=== PATIENT | female | born 1945 | race Two or more races ===

== ENCOUNTER 2016-10-11 11:15 | Emergency (ER) | payer MEDICARE, OTHER ==
[2016-10-11 11:58] VITALS: BP 127/67
--- NOTE | 2016-10-11 12:49 | UC ---
Upper Extremity HPI - HPI Summary HPI Summary: 71 y/o female c/o right sided deltoid pain, worsened with movement (external rotation, and raising the arm) and right medial wrist pain x 1 month. Has full ROM in the shoulder, denies any weakness, numbness, tingling, burning, changes in temperature, bruising, swelling, or known mechanism of injury. Patient states she woke up one day and the wrist and upper right arm felt painful with movement, occasionally wakes the patient up at night, patient is able to reposition herself to resume rest. Reports worsening pain or weakness with opening jars. Denies chest pain, tightness, SOB, intrascapular pain, or any cardiac symptoms. Pain improved by using a heating pad. - History of Current Complaint Chief Complaint: UCUpperExtremity Stated Complaint: RIGHT ARM,LEFT NECK PAIN Time Seen by Provider: 10/11/16 12:09 Hx Obtained From: Patient ?: No Onset/Duration: Gradual Onset Severity Initially: Mild Severity Currently: Mild Pain Intensity: 5 Pain Scale Used: 0-10 Numeric Character: Dull Aggravating Factor(s): Movement, Lifting, Internal/External Rotation Alleviating Factor(s): Heat Associated Signs And Symptoms: Positive: Negative Related History: Dominant Hand Right - Risk Factors Non-Orthopedic Risk Factor: Negative DVT Risk Factors: Negative Septic Arthritis Risk Factor: Negative Compartment Syndrome Risk Factors: Pain - Allergies/Home Medications Allergies/Adverse Reactions: Allergies Allergy/AdvReac Type Severity Reaction Status Date / Time No Known Allergies Allergy Verified 10/11/16 11:58 Home Medications: Home Medications Coenzyme Q10 (Ubidecarenone) [Coq-10] 30 mg PO DAILY 10/11/16 [History Confirmed 10/11/16] Lactobacillus [Probiotic] 1 cap PO DAILY 10/11/16 [History Confirmed 10/11/16] PMH/Surg Hx/FS Hx/Imm Hx Previously Healthy: Yes - hx parathyroid disease Cardiovascular History Of: Denies: Cardiac Disorders, Hypertension, Pacemaker/ICD, Myocardial Infarction , Congestive Heart Failure, Atrial Fibrillation, Deep Vein Thrombosis, Bleeding Disorders Respiratory History Of: Denies: COPD, Asthma, Bronchitis, Pneumonia, Pulmonary Embolism GI/ History Of: Reports: Gastroesophageal Reflux Neurological History Of: Denies: TIA, CVA, Dementia, Seizures, Migraine Psychological History Of: Denies: Anxiety, Depression, Bipolar Disorder, Schizophrenia, Post Traumatic Stress Disorder - Surgical History Surgical History: Yes Surgery Procedure, Year, and Place: parathyroid surgery, hysterectomy - Family History Known Family History: Positive: Cardiac Disease - Mother: heart disease - Social History Occupation: Retired Lives: With Family Alcohol Use: Weekly Substance Use Type: None Smoking Status (MU): Never Smoked Tobacco Have You Smoked in the Last Year: No Review of Systems Constitutional: Negative Skin: Negative Eyes: Negative ENT: Negative Respiratory: Negative Cardiovascular: Negative Gastrointestinal: Negative Genitourinary: Negative Motor: Other - Pain with right sided shoulder movements Neurovascular: Negative Musculoskeletal: Myalgia - right shoudler Neurological: Negative Psychological: Negative All Other Systems Reviewed And Are Negative: Yes Physical Exam Triage Information Reviewed: Yes Appearance: Well-Appearing, No Pain Distress, Well-Nourished Vital Signs: Initial Vital Signs Temp 97.7 F 10/11/16 11:48 Pulse 61 10/11/16 11:48 Resp 16 10/11/16 11:48 BP 127/67 10/11/16 11:48 Pulse Ox 99 10/11/16 11:48 Vital Signs Reviewed: Yes Eye Exam: Normal Eyes: Positive: Conjunctiva Clear ENT Exam: Normal ENT: Positive: Normal ENT inspection, Hearing grossly normal, Pharynx normal, TMs normal Dental Exam: Normal Neck exam: Normal Neck: Positive: Supple, Nontender, No Lymphadenopathy Respiratory Exam: Normal Respiratory: Positive: Chest non-tender, Lungs clear, Normal breath sounds, No respiratory distress, No accessory muscle use Cardiovascular Exam: Normal Cardiovascular: Positive: RRR, No Murmur, Pulses Normal, Brisk Capillary Refill. Negative: Distal Pulses Weak, Distal Pulses Absent Abdomen Description: Positive: Nontender, No Organomegaly, Soft, Bruit Bowel Sounds: Positive: Present Musculoskeletal: Positive: Strength Intact, ROM Intact, No Edema, Other: - Pain with right sided arm movement Neurological: Positive: Alert, Muscle Tone Normal Psychological Exam: Normal Skin Exam: Normal Upper Extremity Course/Dx - Differential Dx/Diagnosis Provider Diagnoses: Right sided wrist pain. Right shoulder pain Discharge - Discharge Plan Condition: Stable Disposition: HOME Prescriptions: Naproxen Sodium 500 mg PO BID #20 tab Patient Education Materials: Shoulder Pain (ED) Referrals: Sally Eisenberg MD [Primary Care Provider] - If Needed Andrez Mathew MD [Medical Doctor] - Additional Instructions: As discussed follow up with Primary Care provider to rule out need for further testing. Apply heat to the deltoid (shoulder) and stretch the area, follow up with Physical therapy to re-strengthen the shoulder and prevent further injury.
== END 2016-10-11 13:05 | disposition home or self-care (01) ==
LOC: UCCORT 11:15
DX: M25.531 Pain in right wrist (principal); M25.511 Pain in right shoulder
CPT/HCPCS: 99212; G0463

== ENCOUNTER 2017-03-09 14:52 | Emergency (ER) | payer MEDICARE, OTHER ==
[2017-03-09 15:06] VITALS: BP 130/71
--- NOTE | 2017-03-09 15:25 | UC ---
Throat Pain/Nasal Reese HPI - HPI Summary HPI Summary: pt presents with c/o of painful nodule in in left nostril. Pt reports that she rubbed her nose and felt a tender area on left side of notril. Pt felt lawrence "painful lump" in side left nare. Pt denies injury, fever or URI - History of Current Complaint Chief Complaint: UCRespiratory Stated Complaint: LUMP INSIDE NOSE Time Seen by Provider: 03/09/17 15:17 Hx Obtained From: Patient ?: No Onset/Duration: Gradual Onset, Lasting Days Severity: Mild Associated Signs & Symptoms: Positive: Other - left nare painful lump - Epiglottits Risk Factors Epiglottis Risk Factors: Negative - Allergies/Home Medications Allergies/Adverse Reactions: Allergies Allergy/AdvReac Type Severity Reaction Status Date / Time No Known Allergies Allergy Verified 03/09/17 15:06 Home Medications: Home Medications Digest Assure 1 tab PO DAILY 03/09/17 [History Confirmed 03/09/17] Fiber Cap 1 tab PO DAILY 03/09/17 [History Confirmed 03/09/17] Hair, Skin And Nails 1 tab PO DAILY 03/09/17 [History Confirmed 03/09/17] Misc Natural Products [Curcumax Pro] 1 cap PO DAILY 03/09/17 [History Confirmed 03/09/17] PMH/Surg Hx/FS Hx/Imm Hx Previously Healthy: Yes - Surgical History Surgical History: Yes Surgery Procedure, Year, and Place: parathyroid surgery, hysterectomy - Family History Known Family History: Positive: Cardiac Disease - Mother: heart disease - Social History Occupation: Retired Lives: With Family Alcohol Use: Weekly Substance Use Type: None Smoking Status (MU): Never Smoked Tobacco Have You Smoked in the Last Year: No Review of Systems Constitutional: Negative Skin: Negative Eyes: Negative ENT: Other - left nare tender nodule inside Respiratory: Negative Cardiovascular: Negative Gastrointestinal: Negative Genitourinary: Negative Motor: Negative Neurovascular: Negative Musculoskeletal: Negative Neurological: Negative Psychological: Negative All Other Systems Reviewed And Are Negative: Yes Physical Exam Triage Information Reviewed: Yes Appearance: Well-Appearing Vital Signs: Initial Vital Signs Temp 97.8 F 03/09/17 14:58 Pulse 62 03/09/17 14:58 Resp 20 03/09/17 14:58 BP 130/71 03/09/17 14:58 Vital Signs Reviewed: Yes Eye Exam: Normal ENT Exam: Other ENT: Positive: Other: - small pencil eraser size reddned area. Dental Exam: Normal Neck exam: Normal Respiratory Exam: Normal Cardiovascular Exam: Normal Musculoskeletal Exam: Normal Neurological Exam: Normal Psychological Exam: Normal Skin Exam: Normal Throat Pain/Nasal Course/Dx - Differential Dx/Diagnosis Differential Diagnosis/HQI/PQRI: URI Provider Diagnoses: acute wound left nare Discharge - Discharge Plan Condition: Stable Disposition: HOME Patient Education Materials: Acute Wounds (ED) Referrals: Sally Eisenberg MD [Primary Care Provider] - If Needed Additional Instructions: Please follow up with your PCP or return to clinic as needed.
== END 2017-03-09 15:38 | disposition home or self-care (01) ==
LOC: UCCORT 14:52
DX: S00.30XA Unspecified superficial injury of nose, initial encounter (principal); X58.XXXA Exposure to other specified factors, initial encounter; Y93.9 Activity, unspecified; Y92.9 Unspecified place or not applicable
CPT/HCPCS: 99211; G0463

== ENCOUNTER 2017-11-25 09:51 | Emergency (ER) | payer MEDICARE, OTHER ==
[2017-11-25 10:19] VITALS: BP 154/71
--- NOTE | 2017-11-25 10:39 | ED ---
Palpitations / Dysrhythmia - HPI Summary HPI Summary: Pt reports yesterday midmorning develop symptoms of heart racing, pounding, mild dizziness, nausea and sob. 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 Pt states they resolved after 3-4 hours. Pt states this morning she felt "off" States sx started again. Pts tates lasted 1 hour. Pt without complaints at present. No fever, nausea, cp, sob,abd pain. No clemente, vision changes. Pt states neg stress test 18 months ago. No certified credit counselor. Pt took her usual medications this am. No ASA. Pt has a parathyroidectomy several years ago , has never had any conditions treated related to this. Pt does take atenolol - nor sure why - states perhaps for previous feeling of "fluttering" in chest.Pt drank 2 cups black tea this morning Pt's medications reviewed this visit - History of Current Complaint Chief Complaint: UCChestPain Time Seen by Provider: 11/25/17 10:04 Hx Obtained From: Patient Timing: Intermittent Episodes Lasting: - 2-4 hours Severity Initially: Moderate Severity Currently: None Character: Fast, Pounding Aggravating: Other Alleviating: Nothing - Allergy/Home Medications Allergies/Adverse Reactions: Allergies Allergy/AdvReac Type Severity Reaction Status Date / Time No Known Allergies Allergy Verified 11/25/17 10:00 Home Medications: Home Medications Aloe Vera [place] Gel Extract [Aloe Vera] 1 cap PO DAILY 11/25/17 [History Confirmed 11/25/17] Ascorbic Acid/Vitamin E/Biotin [Hair Skin Nails-Biotin Gummies] 1 pow PO DAILY 11/25/17 [History Confirmed 11/25/17] Atenolol TAB* [Tenormin TAB* 25 MG] 12.5 mg PO DAILY 11/25/17 [History Confirmed 11/25/17] Calcium Polycarbophil [Fiber] 1 tab PO DAILY 11/25/17 [History Confirmed ] Cholecalciferol TAB* [Vitamin D TAB*] 1,000 mcg PO DAILY 11/25/17 [History Confirmed 11/25/17] Loratadine [Claritin 10 MG CAP] 10 mg PO DAILY PRN 11/25/17 [History Confirmed 11/25/17] Magnesium Oxide [Magnesium] 300 mg PO DAILY 11/25/17 [History Confirmed 11/25/17 ] Meclizine HCl [Dramamine Less Drowsy] 12.5 mg PO DAILY PRN 11/25/17 [History Confirmed 11/25/17] PMH/Surg Hx/FS Hx/Imm Hx Previously Healthy: Yes Endocrine/Hematology History: Denies: Hx Anticoagulant Therapy Cardiovascular History: Denies: Hx Congestive Heart Failure, Hx Deep Vein Thrombosis, Hx Hypertension , Hx Myocardial Infarction, Hx Pacemaker/ICD Respiratory History: Denies: Hx Asthma, Hx Chronic Obstructive Pulmonary Disease (COPD), Hx Pneumonia, Hx Pulmonary Embolism Neurological History: Denies: Hx Dementia, Hx Migraine, Hx Seizures, Hx Transient Ischemic Attacks (TIA) Psychiatric History: Denies: Hx Anxiety, Hx Depression, Hx Schizophrenia, Hx Bipolar Disorder - Surgical History Surgery Procedure, Year, and Place: parathyroid surgery, hysterectomy Hx Anesthesia Reactions: No Infectious Disease History: No Infectious Disease History: Denies: History Other Infectious Disease, Traveled Outside the [place] in Last 30 Days - Family History Known Family History: Positive: Cardiac Disease - Mother: heart disease - Social History Occupation: Retired Lives: With Family Alcohol Use: Occasionally Substance Use Type: Reports: None Smoking Status (MU): Never Smoked Tobacco Have You Smoked in the Last Year: No Review of Systems Constitutional: Negative Eyes: Negative ENT: Negative Positive: Palpitations Respiratory: Negative Positive: Nausea Neurological: Other - lighheaded All Other Systems Reviewed And Are Negative: Yes Physical Exam Triage Information Reviewed: Yes Vital Signs On Initial Exam: Initial Vitals Temp Pulse Resp BP Pulse Ox 98.5 F 67 20 154/71 98 11/25/17 10:08 11/25/17 10:08 11/25/17 10:08 11/25/17 10:08 11/25/17 10:08 Vital Signs Reviewed: Yes Appearance: Positive: Well-Appearing, No Pain Distress, Well-Nourished Skin: Positive: Warm, Skin Color Reflects Adequate Perfusion, Dry Head/Face: Positive: Normal Head/Face Inspection Eyes: Positive: Normal, EOMI, SENIA ENT: Positive: Hearing grossly normal, Pharynx normal, TMs normal Neck: Positive: Supple, Nontender, No Lymphadenopathy Respiratory/Lung Sounds: Positive: Clear to Auscultation, Breath Sounds Present , Decreased Breath Sounds Cardiovascular: Positive: Normal, RRR, Other - no bruits b/l. Negative: IRR Abdomen Description: Positive: Nontender, No Organomegaly, Soft Bowel Sounds: Positive: Present Musculoskeletal: Positive: Normal, Strength/ROM Intact Neurological: Positive: Normal, Sensory/Motor Intact, Alert, Oriented to Person Place, Time Psychiatric: Positive: Anxious - mild AVPU Assessment: Alert - [place] Coma Scale Best Eye Response: 4 - Spontaneous Best Motor Response: 6 - Obeys Commands Best Verbal Response: 5 - Oriented Coma Scale Total: 15 Diagnostics - Vital Signs Vital Signs Temp Pulse Resp BP Pulse Ox 11/25/17 10:08 98.5 F 67 20 154/71 98 - Laboratory Lab Statement: Any lab studies that have been ordered have been reviewed, and results considered in the medical decision making process. Course/Dx - Course Course Of Treatment: pt with 2 episodes of palpitation with lightheadedness, nausea, and sob. Pt without current complaints. Pt with h/o parathroid resection x 1, htn. EKG reviewed - no acute changes. d/w pt at length - recommend to ED for eval - likely include CXR and labs. Pt in agreement. okay for pt to transfer by POV. Pt reqeusting [facility]. spoke with Renetta Osorio - aware and expecting pt in ED - Diagnoses Provider Diagnoses: Palpitations Discharge - Sign-Out/Discharge Documenting (check all that apply): Discharge - Discharge Plan Condition: Stable Disposition: HOME Patient Education Materials: Heart Palpitations (ED) Referrals: Sally Eisenberg MD [Primary Care Provider] - Additional Instructions: As discussed with your provider today - you are being referred directly to the emergency department at [facility] for further evaluation of your episodes of hear Go directly to the emergency department - they are expecting you. If you develop symptoms or any concerns while driving, fur puller and call 911. - Billing Disposition and Condition Condition: STABLE Disposition: HOME
[2017-11-25] MEDS ORDERED: Aspirin 81 mg CHEW TAB* 81 MG TAB.CHEW PO ONE (10:43)
[2017-11-25] MEDS ORDERED: Aspirin 81 mg CHEW TAB* 81 MG TAB.CHEW ONE (10:44)
== END 2017-11-25 10:57 | disposition home or self-care (01) ==
LOC: UCCORT 09:51
DX: R00.2 Palpitations (principal); I45.10 Unspecified right bundle-branch block
CPT/HCPCS: 93005; 99212; A9270-GY; G0463

== ENCOUNTER 2018-02-23 08:06 | Emergency (ER) | payer MEDICARE, OTHER ==
[2018-02-23 08:24] VITALS: BP 113/61
--- NOTE | 2018-02-23 08:39 | UC ---
Skin Complaint HPI - HPI Summary HPI Summary: 73 year old female with skin concerns. Noticed bite on back 3 days ago located on right shoulder. Did not see what bit her. Has been having increased vertigo since bite. Denies headache, fatigue. No falling. No vision changes. No falls. Not sure what bit her. No myalgias or other symptoms [ End ] - History of Current Complaint Chief Complaint: UCSkin Time Seen by Provider: 02/23/18 08:34 Stated Complaint: SKIN COMPLAINT-BACK Hx Obtained From: Patient Onset/Duration: Sudden Onset Onset Severity: Mild Current Severity: Moderate Pain Intensity: 0 Aggravating Factor(s): Nothing Alleviating Factor(s): Nothing Associated Signs & Symptoms: Positive: Negative Related History: Possible Reaction to: Insect - Allergy/Home Medications Allergies/Adverse Reactions: Allergies Allergy/AdvReac Type Severity Reaction Status Date / Time No Known Allergies Allergy Verified 02/23/18 08:20 Review of Systems Skin: Other - insect bite Neurological: Other - intermittent vertigo Is Patient Immunocompromised?: No All Other Systems Reviewed And Are Negative: Yes PMH/Surg Hx/FS Hx/Imm Hx Previously Healthy: Yes Cardiovascular History: Hypertension Other History Of: Negative For: Anticoagulant Therapy - Surgical History Surgical History: Yes Surgery Procedure, Year, and Place: parathyroid surgery, hysterectomy - Family History Known Family History: Positive: Cardiac Disease - Mother: heart disease - Social History Occupation: Retired - [employer] Lives: With Family Alcohol Use: Weekly Alcohol Amount: 1-2 glasses of wine Substance Use Type: None Smoking Status (MU): Never Smoked Tobacco Have You Smoked in the Last Year: No Physical Exam Triage Information Reviewed: Yes Appearance: Well-Appearing, No Pain Distress, Well-Nourished Vital Signs: Initial Vital Signs Temp 99.2 F 02/23/18 08:16 Pulse 70 02/23/18 08:16 Resp 15 02/23/18 08:16 BP 113/61 02/23/18 08:16 Pulse Ox 99 02/23/18 08:16 Vital Signs Reviewed: Yes Eye Exam: Normal ENT Exam: Normal Neck: Positive: 1 Respiratory Exam: Normal Cardiovascular Exam: Normal Musculoskeletal Exam: Normal Neurological Exam: Normal Psychological Exam: Normal Skin Exam: Normal Skin: Positive: rashes - round macular bulls eye lesion 5x5 cm. no streaking. no discharge. right posterior shoulder and small insect bite / break in skin near the center of the lesion Course/Dx - Course Course Of Treatment: (+) EM -- start doxy for 2 weeks and f/u with PCP and they can determine if would like to entend the antibiotics she is aware of plan / SE of antibitoics and will f/u with PCP - Differential Diagnoses - Skin Complaint Differential Diagnoses: Cellulitis, Contact Dermatitis, Local Allergic Reaction , Urticaria - Diagnoses Provider Diagnoses: Erythema migrans Discharge - Sign-Out/Discharge Documenting (check all that apply): Patient Departure - Discharge Plan Condition: Good Disposition: HOME Prescriptions: Doxycycline Hyclate 100 mg PO BID 14 Days #28 tablet Patient Education Materials: Tick Bite (ED), Lyme Disease (ED) Referrals: Sally Eisenberg MD [Primary Care Provider] - 4 Days Additional Instructions: As we discussed please follow up with your primary care doctor and the two of you can decide if you would like to further test or treat for potential Lyme disease - Billing Disposition and Condition Condition: GOOD Disposition: Home
== END 2018-02-23 08:58 | disposition home or self-care (01) ==
LOC: UCCORT 08:06
DX: I10 Essential (primary) hypertension (principal); A26.0 Cutaneous erysipeloid
CPT/HCPCS: 99212; G0463